=== PATIENT | male | born 2000 | race Caucasian/White ===

== ENCOUNTER 2023-01-28 05:06 | Outpatient (CLI) | payer MEDICAID | END 2023-01-28 23:59 | disposition critical access hospital (66) | LOC: EMS 05:06 | DX: R45.6 Violent behavior (principal); R41.0 Disorientation, unspecified; F11.90 Opioid use, unspecified, uncomplicated; F10.90 Alcohol use, unspecified, uncomplicated; Z78.1 Physical restraint status | CPT/HCPCS: A0425; A0429; A0999 ==

== ENCOUNTER 2023-01-28 05:30 | Emergency (ER) | payer MEDICAID ==
[2023-01-28] MEDS ORDERED: LORazepam 1 MG TABLET PO STA (05:38)
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
[2023-01-28 05:51] VITALS: BP 129/82
[2023-01-28] MEDS ORDERED: diphenhydrAMINE INJ 50 MG/ML VIAL IM STA (06:06)
[2023-01-28] MEDS ORDERED: HALOPERIDOL 5 MG/ML VIAL IM STA (06:06)
[2023-01-28] MEDS ORDERED: LORazepam 2 MG/ML VIAL IVP STA (06:06)
== END 2023-01-28 07:37 | disposition home or self-care (01) ==
LOC: ED 05:30
DX: F19.90 Other psychoactive substance use, unspecified, uncomplicated (principal); F91.9 Conduct disorder, unspecified
CPT/HCPCS: 99283; J1200; J2060; J8499